=== PATIENT | male | born 1955 | race Caucasian/White ===

== ENCOUNTER 2019-07-18 06:07 | Observation (INO) | payer OTHER ==
--- NOTE | 2019-07-12 15:03 | HP ---
HISTORY AND PHYSICAL: DATE OF ADMISSION/SURGERY: 07/18/19 DATE OF OFFICE VISIT: 07/12/19 SURGEON: Nayely Bates MD * (DICTATED BY ARCADIO MARVIN) PROCEDURE: Right total knee arthroplasty. CHIEF COMPLAINT: Right knee pain. HISTORY OF PRESENT ILLNESS: Mr. Martinez is a 63-year-old gentleman with end-stage osteoarthritis of the right knee. He has failed conservative treatment and he elected to proceed with a right total knee arthroplasty. PAST MEDICAL HISTORY: Denies. PAST SURGICAL HISTORY: Bilateral knee arthroscopies and right inguinal hernia repair. CURRENT MEDICATIONS: Multivitamin. ALLERGIES: None. FAMILY HISTORY: Cancer and coronary artery disease. SOCIAL HISTORY: He is a 63-year-old gentleman, lives with his . He does not smoke or use drugs. He uses occasional alcohol. REVIEW OF SYSTEMS: A complete 14-point review of systems was reviewed with the patient, it was all negative or noncontributory. He denies history of DVT, PE, hepatitis, HIV, or anesthesia problems. PHYSICAL EXAMINATION GENERAL: He is well developed, well nourished, in no acute distress. VITAL SIGNS: He stands 75-1/2 inches tall, weighs 200 pounds. His blood pressure is 123/82, heart rate is 68. HEENT: Normocephalic, atraumatic. NECK: Supple. No palpable lymph nodes. PULMONARY: The lungs are clear to auscultation bilaterally. CARDIO: Regular rate and rhythm. Strong S1 and S2. ABDOMEN: Soft, nontender, nondistended. NEUROLOGICAL: He is alert and oriented x3. MUSCULOSKELETAL: Right lower extremity: Skin is intact. There are no open wounds or abrasions. There is moderate effusion of the right knee joint. He walks with an antalgic type gait. Range of motion is 20 to 100 degrees of flexion. He has 2+ dorsalis pedis pulse. He is able to dorsiflex and plantarflexion. He has an intact sensation. ASSESSMENT AND PLAN: Mr. Martinez is a 63-year-old gentleman with severe end- stage osteoarthritis of the right knee. He has failed conservative treatment and elected to proceed with a right total knee arthroplasty. The surgery is scheduled for 07/18/[address] Bates discussed the risks and benefits of the surgery at today's visit and all of his questions were answered. He will follow up with Dr. Bates 2 weeks after the surgery. ARCADIO MARVIN [id number]/CPS #: [id number] MTDD
[~2019-07-18 06:07] MED LIST: Tranexamic Acid 1,000 MG in NS 0.9% 50 ML* (outpatient use) IV SCH
[2019-07-18] MEDS ORDERED: ceFAZolin 2 GM PREMIX in ORs 2 GM/50 ML BAG ONE (06:40)
[2019-07-18] MEDS ORDERED: ROPIVACAINE 5 MG/ML 30 ML BTL (0.5%) ONE ×2 (07:23→07:38)
[2019-07-18] MEDS ORDERED: fentaNYL* 50 MCG/ML 2 ML VIAL (100 MCG VIAL) ONE (07:28)
[2019-07-18] MEDS ORDERED: Midazolam* 1 MG/ML 5 ML VIAL (5 MG) ONE (07:28)
[2019-07-18] MEDS ORDERED: Bupivacaine 0.5% SDV PF* 30ML VIAL ONE (08:31)
[2019-07-18] MEDS ORDERED: Propofol* 10 MG/ML 20 ML BTL ONE ×2 (08:31→10:06)
[2019-07-18] MEDS ORDERED: HYDROmorphone INJ1* 1 MG/ML SYRINGE IV PRN (08:55)
[2019-07-18] MEDS ORDERED: Naloxone* 0.4 MG/ML 1 ML VIAL IV PRN (08:55)
[2019-07-18] MEDS ORDERED: Acetaminophen TAB* 325 MG PO PRN (08:55)
[2019-07-18] MEDS ORDERED: HYDROcodone/ACETAMIN 5-325 MG* 1 TAB PO PRN (08:55)
[2019-07-18] MEDS ORDERED: Polyethylene Glycol 3350* 17 GM PACKET PO PRN (11:01)
[2019-07-18] MEDS ORDERED: diPHENhydraMINE IV* 50 MG/ML 1 ml VIAL (BENADRYL) IV PRN (11:01)
[2019-07-18] MEDS ORDERED: diPHENhydraMINE PO* 25 MG PO PRN (11:01)
[2019-07-18] MEDS ORDERED: Ondansetron TAB* 4 MG PO PRN (11:01)
[2019-07-18] MEDS ORDERED: Ondansetron INJ* 2 MG/ML VIAL IV PRN (11:01)
[2019-07-18] MEDS ORDERED: Morphine INJ* 2 MG/ML 1 ML SYRINGE (TWO MG - NEW SYRINGE VERSION) IV PRN (11:01)
[2019-07-18] MEDS ORDERED: Cyclobenzaprine TAB* 10 MG PO PRN (11:01)
[2019-07-18] MEDS ORDERED: Ondansetron ODT TAB* 4 MG PO PRN (11:01)
[2019-07-18] MEDS ORDERED: Magnesium Hydroxide LIQ* 30 ML UDC PO PRN (11:01)
[2019-07-18] MEDS ORDERED: oxyCODONE/Acetamin 5/325 MG* TAB ONE (12:53)
[2019-07-18] MEDS: oxyCODONE/Acetamin 5/325 MG* TAB PO PRN ×2 (12:54→22:09)
[2019-07-18] MEDS: Lactated Ringers 1000 ML Bag* 1,000 ML IV SCH (14:28)
[2019-07-18] MEDS: Acetaminophen TAB* 325 MG PO SCH ×2 (14:28→22:05)
[2019-07-18] MEDS: traMADol TAB* 50 MG PO PRN ×2 (14:32→20:49)
--- NOTE | 2019-07-18 14:36 | OP ---
Operative Report - Blank - Operative Report Date of Operation: 07/18/19 Note: ROSA ODONNELL 1955 Date of Surgery: 07/18/19 Nayely Bates MD Pinion And Wheel Truer: Anthony ERVIN did help throughout the procedure with preparation of the knee, wound retraction, manipulation of the knee, and wound closure. Anesthesiologist: Dr. Justice Anesthesia Type: Spinal Preoperative Diagnosis: Right severe degenerative osteoarthritis of the knee Postoperative Diagnosis: As above Procedure Performed: Right Total Knee Arthroplasty Tourniquet time: 46 minutes Complications: None Specimen: Bone and cartilage from the right knee joint sent to pathology. Hardware Used: Cemented Luis [employer] Nephew total knee hardware was used - For the femur a size 8 right oxinium legion posterior stabilized femoral component, for the tibia a size right 8 carey II tibial baseplate, for the insert a size 11mm 7-8 posterior stabilized articular polyethylene insert, and for the patella a size 38 3-peg all poly patella. Brief History/Indication: ROSA ODONNELL was known in clinic and had a history of severe right knee pain and swelling. He failed conservative treatment with anti- inflammatories, pain pills, intra-articular injections and physical therapy. He elected to undergo right total knee arthroplasty due to continued pain and decreased quality of life. Radiographs showed severe end stage osteoarthritis of the knee with bone on bone contact. Informed consent was obtained from the patient. He understood the risks of surgery included but were not limited to: bleeding, infection, damage to nearby structures, intraoperative fracture, nerve palsy, failure of the hardware, early loosening, knee stiffness or loss of motion, anesthesia complications, stroke, heart attack, blood clot and . He wished to proceed. Intra-Operative Findings: Intraoperatively the patient was noted to have severe loss of cartilage in all 3 compartments of the knee. Description of the Procedure: ROSA ODONNELL was identified in the preanesthesia unit. His right knee was marked as the correct operative side. Informed consent was signed and placed in the chart. The patient was taken to the operating room and placed under anesthesia without complication. A howell catheter was placed. A tourniquet was placed on the right thigh. The right lower extremity was prepped and draped in the usual sterile fashion. Preoperative time-out was made to correctly identify the patient, side and site. Appropriate intraoperative antibiotics were given within one hour of incision. Tourniquet was inflated. A midline incision was made and carried sharply down to the extensor mechanism. A new 10 blade was used to make a standard medial parapatellar arthrotomy. The patella was subluxed laterally. Electrocautery was used to dissect soft tissue off the superomedial tibia to the midsagittal plane. The knee was flexed up. The anterior horn of the lateral meniscus and the ACL were sharply incised. A drill was used to enter the distal femur. The intramedullary distal femoral cutting guide was pinned on the distal femur. The oscillating saw was used to make the distal femoral cut. The external rotation guide was pinned on the distal femur and the distal femur was sized to a size 8. The size 8 multi-cutting jig was pinned on the distal femur. The oscillating saw was used to make the appropriate 4 chamfer cuts. Next the PCL was completely released. The extramedullary tibial cutting guide was pinned on the proximal tibia and the oscillating saw was used to make the proximal tibial cut perpendicular to the mechanical axis of the tibia. The bone was carefully removed. The knee was brought out into full extension. The spacer block was placed and had excellent fit with the knee in full extension. The medial and lateral ligaments were well balanced. The flexion and extension gaps were well balanced. The knee was flexed up. Lamina independent living instructor was placed both medially and laterally. Any remaining meniscus was removed with electrocautery. Curved osteotome was used to remove any posterior osteophytes. The tibial tray and drop vita were placed and confirmed a satisfactory tibial cut. The size 8 right femoral trial was impacted onto the distal femur. This trial had excellent fit and stability. The box for the posterior stabilized implant was prepared using a box cut osteotome and a reamer. Next a tibial tray trial and 9 mm insert trial was placed. The knee was taken through a range of motion and had full extension to 130 degrees of flexion. Patellofemoral tracking was satisfactory. The patella was inverted and sized to a size 38. Three peg holes were drilled through the size 38 drill guide. The trial patella was placed and the knee was taken through a range of motion. There was satisfactory patellofemoral tracking. All trials were removed. The tibia was subluxed anteriorly and sized to a size 8. The proximal tibial was prepared with a size 8 keel punch. All bony cut surfaces were irrigated with sterile saline and dried. Final implants were cemented into place starting with the tibia, followed by the femur, and last the patella. A 11 mm insert trial was placed and the knee was brought into full extension. Tourniquet was turned down and the knee was copiously irrigated with sterile saline. Electrocautery was used to obtain meticulous hemostasis. Once the cement had fully cured, the insert trial was removed. Any excess cement was removed from around the hardware and capsule. Final insert chosen was a 11 mm posterior stabilized Carey II articular insert size 7-8. Stability of the insert was checked and noted to be stable. The extensor mechanism was closed using number 1 vicryls. The rest of the incision was closed in a layered fashion using 0 and 2-0 vicryls. The skin was closed using 3-0 nylon suture. Sterile xeroform, 4x4s and webril were used to cover the incision. Daniel wrap and cold pack were used to cover the dressings. The patients anesthesia was reversed without difficulty. He was taken to the PACU in stable condition. Intended weight-bearing will be as tolerated.
--- NOTE | 2019-07-18 15:51 | PN ---
Progress Note - Progress Note Date of Service: 07/18/19 Note: OOB to chair; moderate pain; ambulated well with PT, able to DF/PF, 2+ DP pulse and intact sensation
[2019-07-18] MEDS: ceFAZolin 1 GM ADVAN(*) 1 GM in NS 0.9% 50 ML* 50 ML IVPB SCH ×2 (16:10→23:32)
[2019-07-18] MEDS: oxyCODONE TAB* 5 MG TAB PO PRN (17:15)
[2019-07-18] MEDS: Docusate CAP* 100 MG PO SCH (20:49)
[2019-07-18] MEDS: Magnesium Hydroxide LIQ* 30 ML UDC PO SCH (20:49)
[2019-07-19] MEDS: oxyCODONE TAB* 5 MG TAB PO PRN ×2 (04:31→08:26)
[2019-07-19] MEDS: Acetaminophen TAB* 325 MG PO SCH ×2 (06:12→15:00)
[2019-07-19] MEDS: oxyCODONE/Acetamin 5/325 MG* TAB PO PRN ×2 (06:19→11:10)
[2019-07-19 06:29] LABS: Hematocrit 36 % (42-52); Hemoglobin 12.6 g/dL (14.0-18.0); Mean Platelet Volume 6.4 fL (7.4-10.4); Platelet Count 258 10^3/uL (150-450)
[2019-07-19 06:54] LABS: BUN/Creatinine Ratio 16.4 (8-20); Calcium 8.4 mg/dL (8.6-10.3); EGFR African American 162.1 (>60); EGFR Non-African American 133.9 (>60); Potassium 3.8 mmol/L (3.5-5.0)
[2019-07-19] MEDS: Magnesium Hydroxide LIQ* 30 ML UDC PO SCH (07:39)
[2019-07-19] MEDS: Docusate CAP* 100 MG PO SCH (07:39)
[2019-07-19] MEDS: ceFAZolin 1 GM ADVAN(*) 1 GM in NS 0.9% 50 ML* 50 ML IVPB SCH (07:40)
[2019-07-19] MEDS: Lactated Ringers 1000 ML Bag* 1,000 ML IV SCH (08:40)
[2019-07-19] MEDS ORDERED: Apixaban* 2.5 MG TAB PO SCH (09:00)
[2019-07-19] MEDS ORDERED: Vitamin THERAPEUTIC TAB PO SCH (09:00)
--- NOTE | 2019-07-19 10:50 | PN ---
Progress Note - Progress Note Date of Service: 07/19/19 SOAP: Subjective: []Pt seen and examined at bedside. He feels well without CP, SOB, dizziness or nausea. He desires DC to home today, has not yet worked with PT. Objective: []Gen: NAD, appears well RLE: Right knee dressing changed, incision CDI, thigh soft, DF/PF intact, Dp2+, sensation intact to light touch distally Calves supple and nontender without erythema, edema or palpable cords Assessment: []POD 1 sp RTK Plan: []WBAT PT eliquis 2.5 mg po BID x 30 days post op DC home today if PT goals met hyponatremia, will repeat outpt Vital Signs Temp 98.2 F 07/19/19 07:32 Pulse 76 07/19/19 07:32 Resp 18 07/19/19 08:27 BP 146/75 07/19/19 07:32 Pulse Ox 98 07/19/19 08:00 Intake & Output 07/18/19 07/19/19 07/19/19 18:59 06:59 18:59 Intake Total 3050 2748 1129 Output Total 2400 1525 Balance 650 1223 1129 Intake: IV Fluids 2700 990 835 LR 2700 990 835 IVPB 110 58 54 ABX - CEFAZOLIN 55 58 Oral 240 1700 240 Output: Lomas 2200 1525 Estimated Blood Loss 200 Other: Estimated Void Medium # Voids 1 Laboratory Last Values Hgb 12.6 g/dL (14.0-18.0) L 07/19/19 06:22 Hct 36 % (42-52) L 07/19/19 06:22 Plt Count 258 10^3/uL (150-450) 07/19/19 06:22 MPV 6.4 fL (7.4-10.4) L 07/19/19 06:22 Sodium 129 mmol/L (135-145) L 07/19/19 06:22 Potassium 3.8 mmol/L (3.5-5.0) 07/19/19 06:22 Chloride 97 mmol/L (101-111) L 07/19/19 06:22 Carbon Dioxide 27 mmol/L (22-32) 07/19/19 06:22 Anion Gap 5 mmol/L (2-11) 07/19/19 06:22 BUN 10 mg/dL (6-24) 07/19/19 06:22 Creatinine 0.61 mg/dL (0.67-1.17) L 07/19/19 06:22 Est GFR ( Amer) 162.1 (>60) 07/19/19 06:22 Est GFR (Non-Af Amer) 133.9 (>60) 07/19/19 06:22 BUN/Creatinine Ratio 16.4 (8-20) 07/19/19 06:22 Glucose 118 mg/dL (70-100) H 07/19/19 06:22 Calcium 8.4 mg/dL (8.6-10.3) L 07/19/19 06:22
[2019-07-19 12:10] VITALS: BP 149/73
--- NOTE | 2019-07-19 13:55 | DS ---
Orthopedic Discharge Summary - Discharge Summary Date of Admission:07/18/19 Date of Discharge: 07/19/19 Date of Surgery: 07/18/10 Attending Orthopedic Provider: Dr Bates Pre-operative Diagnosis: right knee osteoarthritis Operative Procedure: right total knee replacement Disposition of Patient: home with outpatient services Condition of Patient: stable History: ROSA ODONNELL is a 63 year old M with years of increasingly severe right knee pain. Patient has failed conservative management and has elected to undergo a right total knee replacement Hospital Course: ROSA was admitted to [facility] on 07/18/19. Patient underwent a right total knee replacement without complication followed by a brief recovery in PACU and transfer to the Short Stay Surgical Unit in stable condition. physical therapy also participated in this patients care. Post -op day 1: patient was alert and in no acute distress. Dressing was clean, dry and intact. Operative extremity dorsiflexion and plantarflexion intact, sensation intact to light touch distally, DP2+. Prior to discharge: dressing was changed, incision was clean, dry and intact. Hyponatremia with sodium of 129 this morning, repeat value this afternoon was 129. Will repeat again within 2 days. Patient was deemed to be medically and orthopedically stable for discharge. Physical therapy goals were met. Home Medications Medication Instructions Recorded Confirmed Type Multivitamin Multiple Vitamins 1 tab PO QAM 10/25/17 07/18/19 History Nathrop-3S/Dha/Epa/Fish Oil [Fish 1 cap PO QAM 07/10/19 07/18/19 History Oil 1,200 mg Softgel] Acetaminophen TAB* [Tylenol TAB*] 975 mg PO Q8HR tab 07/19/19 Rx Apixaban* [Eliquis*] 2.5 mg PO BID #60 tab 07/19/19 Rx Docusate CAP* [Colace Cap*] 100 mg PO BID PRN #90 cap 07/19/19 Rx oxyCODONE/Acetamin 5/325 MG* 2 tab PO Q4H PRN #70 tab MDD 10 07/19/19 Rx [Percocet 5/325 TAB*] Discharge Instructions following Orthopedic Surgery: Activity: * Weight Bearing as tolerated * Continue physical therapy and occupational therapy exercises as shown * start outpatient physical therapy Wound care: * OK to shower on post-op day 3, no bathing, swimming, or submerging wound. * Use gentle soap, pat dry. Cover with gauze, LILA wrap or tape. Call Orthopedic office for: * Increased drainage * Redness * Increased pain * Fever Go to ER with shortness of breath or chest pain. Diet: * Regular diet * Increase fluids and fiber to prevent constipation. * Continue to use stool softeners, call office if no bowel motion within 48 hours. Medications See Home Medication List in your packet for medications that you should take after discharge. DVT Prophylaxis: Eliquis Dosin.5 mg, 1 tab every 12 hours x 30 days. Increases bleeding tendency Pain Control: Percocet Dosin/325 mg 1-2 tabs by mouth every 4-6 hours as needed for pain. Maximum of 10 tabs per day. Hold for sedation, wean off as soon as pain allows Please note that Percocet contains Tylenol (acetaminophen). Maximum daily dose of Tylenol is 4000 mg from all sources. Antibiotics are required prior to any dental work. repeat sodium outpatient within 2 days, results to PCP FOLLOW UP: Follow up with Dr. Brewer] Within 10-14 days, call for appointment Please call our office with any questions or concerns ([phone]) [facility]
[2019-07-20] MEDS ORDERED: Bisacodyl SUPP* 10 MG SUPP PR PRN (11:01)
== END 2019-07-19 16:11 | disposition home or self-care (01) ==
LOC: OR 06:07 → SSU 11:01
PROVIDERS: ADMIT Orthopaedic Surgery Adult Reconstructive Orthopaedic Surgery; ATTEND Orthopaedic Surgery Adult Reconstructive Orthopaedic Surgery
DX: M17.11 Unilateral primary osteoarthritis, right knee (principal); M25.561 Pain in right knee; Z79.899 Other long term (current) drug therapy
CPT/HCPCS: 36415; 80048; 84300; 85014; 85018; 85049; 96361; 96365; 96366; 96375; A9270-GY; G0378; J0690; J2250; J2270; J2704; J2795; J3010; J3490

== ENCOUNTER 2021-05-27 07:21 | Observation (INO) ==
[~2021-05-27 07:21] MED LIST changes: +Buffered Lidocaine 1% SYRIN 1 ml INTRADERM ONE; +Lactated Ringers 1000 ml BAG 1,000 ML IV SCH; -Tranexamic Acid 1,000 MG in NS 0.9% 50 ML* (outpatient use) IV SCH
[2021-05-27] MEDS ORDERED: ceFAZolin 2 GM in NS PREMIX 2 GM/100 ML BAG IVPB ONE (07:43)
[2021-05-27] MEDS ORDERED: Ropivacaine 5 MG/ML 20 ML VIAL 0.5% (100 MG) ONE (09:09)
[2021-05-27] MEDS ORDERED: ROPIVACAINE 5 MG/ML 30 ML BTL (0.5%) ONE (09:15)
[2021-05-27] MEDS ORDERED: Dexamethasone IV 4 MG/ML VIAL 1 ml VIAL ONE ×2 (09:16→10:58)
[2021-05-27] MEDS ORDERED: Midazolam 2 mg/2 ml VIAL 1 mg/ml 2 ml VIAL (2 mg) ONE (09:16)
[2021-05-27] MEDS ORDERED: Lidocaine 1% MPF 5 ML VIAL ONE (09:20)
[2021-05-27] MEDS ORDERED: fentaNYL 100 mcg/2 ml 50 MCG/ML VIAL ONE (09:46)
[2021-05-27] MEDS ORDERED: Lidocaine 2% PF 5 ML VIAL ONE (10:03)
[2021-05-27] MEDS ORDERED: Propofol 10 MG/ML 20 ML BTL ONE ×4 (10:54→11:50)
[2021-05-27] MEDS ORDERED: Ondansetron 4 mg VIAL 2 MG/ML 2 ml VIAL ONE (10:58)
[2021-05-27] MEDS ORDERED: Lactulose 30 ml UDC PO PRN (11:13)
[2021-05-27] MEDS ORDERED: diPHENhydraMINE IV 50 MG/ML 1 ml VIAL (BENADRYL) IV PRN ×2 (11:13→11:49)
[2021-05-27] MEDS ORDERED: Ondansetron 4 mg VIAL 2 MG/ML 2 ml VIAL IV PRN (11:13)
[2021-05-27] MEDS ORDERED: Ondansetron ODT 4 mg TAB 4 MG TAB PO PRN (11:13)
[2021-05-27] MEDS ORDERED: diPHENhydraMINE 25 mg TAB PO PRN (11:13)
[2021-05-27] MEDS ORDERED: Magnesium Hydroxide LIQ 30 ML UDC PO PRN (11:13)
[2021-05-27] MEDS ORDERED: Morphine 2 MG/ML SYRINGE IV PRN (11:18)
[2021-05-27] MEDS ORDERED: DiMENhydriNATE IV 50 mg/ml 1 ml VIAL IV PUSH PRN (11:49)
[2021-05-27] MEDS ORDERED: Naloxone 0.4 mg VIAL 0.4 mg/ml 1 ml VIAL IV PRN (11:49)
[2021-05-27] MEDS ORDERED: HYDROmorphone 1 MG/1 ML SYRINGE IV PRN (11:49)
[2021-05-27] MEDS: Lactated Ringers 1000 ml BAG 1,000 ML IV SCH (14:19)
[2021-05-27] MEDS: ceFAZolin 1 GM ADVAN 1 GM in NS 0.9% 50 ML 50 ML IVPB SCH (17:59)
[2021-05-27] MEDS: Magnesium Hydroxide LIQ 30 ML UDC PO SCH (23:11)
[2021-05-28] MEDS: Lactated Ringers 1000 ml BAG 1,000 ML IV SCH (00:38)
[2021-05-28] MEDS: ceFAZolin 1 GM ADVAN 1 GM in NS 0.9% 50 ML 50 ML IVPB SCH ×2 (02:34→10:23)
[2021-05-28 07:24] LABS: Calcium 8.8 mg/dL (8.6-10.3); Potassium 3.9 mmol/L (3.5-5.0)
[2021-05-28 07:34] LABS: Hematocrit 37 % (42-52); Hemoglobin 12.8 g/dL (14.0-18.0); Mean Platelet Volume 7.1 fL (7.4-10.4); Platelet Count 264 10^3/uL (150-450)
[2021-05-28] MEDS: Magnesium Hydroxide LIQ 30 ML UDC PO SCH (08:31)
[2021-05-28] MEDS ORDERED: Vitamin THERAPEUTIC TAB PO SCH (09:00)
[2021-05-28 12:00] VITALS: BP 136/75
== END 2021-05-28 14:10 | disposition home or self-care (01) ==
LOC: SSU 07:21 → OR 07:21 → EDSTATUS 07-08 14:45
PROVIDERS: ADMIT Orthopaedic Surgery Adult Reconstructive Orthopaedic Surgery; ATTEND Orthopaedic Surgery Adult Reconstructive Orthopaedic Surgery